=== PATIENT | male | born 1990 | race Two or more races ===

== ENCOUNTER 2018-03-21 12:34 | Outpatient (CLI) | payer BC | END 2018-03-21 23:59 | disposition home or self-care (01) | LOC: MRI 12:34 | PROVIDERS: ATTEND Legal Medicine | DX: S83.511A Sprain of anterior cruciate ligament of right knee, initial encounter (principal); M22.41 Chondromalacia patellae, right knee; X58.XXXA Exposure to other specified factors, initial encounter; Y93.89 Activity, other specified; Y92.89 Other specified places as the place of occurrence of the external cause; Y99.8 Other external cause status | CPT/HCPCS: 73721-TC ==

== ENCOUNTER 2018-04-04 08:55 | Outpatient (CLI) | payer BC | END 2018-04-04 23:59 | disposition home or self-care (01) | LOC: MRI 08:55 | PROVIDERS: ATTEND Student in an Organized Health Care Education/Training Program | DX: S76.011A Strain of muscle, fascia and tendon of right hip, initial encounter (principal); X58.XXXA Exposure to other specified factors, initial encounter; Y93.89 Activity, other specified; Y92.89 Other specified places as the place of occurrence of the external cause; Y99.8 Other external cause status | CPT/HCPCS: 73721-TC ==

== ENCOUNTER 2018-04-23 12:12 | Outpatient (CLI) | payer BC ==
[2018-04-23 13:09] LABS: APPEARANCE,URINE CLEAR (CLEAR); BILIRUBIN,URINE NEGATIVE (NEGATIVE); BLOOD, URINE NEGATIVE Ery/uL (NEGATIVE); COLOR,URINE YELLOW (YELLOW); KETONES,URINE NEGATIVE (NEGATIVE); LEUKOCYTE ESTERASE ,URINE NEGATIVE (NEGATIVE); NITRITE, URINE NEGATIVE (NEGATIVE); PROTEIN,URINE NEGATIVE (NEGATIVE); UGLUCOSE NEGATIVE (NEGATIVE); UROBILINOGEN,URINE 0.2 EU/dL (0.2)
[2018-04-23 13:10] LABS: BASOPHILS # (AUTO) 0.1 /CMM (0.0-0.2); BASOPHILS % (AUTO) 1.1 % (0.0-2.0); EOSINOPHILS % (AUTO) 2.4 % (0.0-6.0); HEMATOCRIT 47 % (39-51); LYMPHOCYTES # (AUTO) 2.5 /CMM (0.8-4.8); MEAN CORPUSCULAR HGB CONC 34 g/dl (31.0-36.0); MEAN CORPUSCULAR VOLUME 90 fL (80-96); MONOCYTES # (AUTO) 0.5 /CMM (0.1-1.30); MONOCYTES % (AUTO) 7.9 % (2.0-12.0); NEUTROPHILS % (AUTO) 48.6 % (43.0-81.0); PLATELET COUNT (AUTO) 247 /CMM (150-450); WHITE BLOOD COUNT (AUTO) 6.1 K/uL (4.3-11.0)
[2018-04-23 13:30] LABS: ALBUMIN 4.1 g/dL (3.4-5.0); BILIRUBIN,TOTAL 0.3 mg/dL (0.2-1.0); CALCIUM, SERUM 8.9 mg/dL (8.5-10.1); CREATININE 0.9 mg/dL (0.6-1.3); POTASSIUM 3.8 mmol/L (3.5-5.1); TOTAL PROTEIN, SERUM 7.3 g/dL (6.4-8.2)
== END 2018-04-23 23:59 | disposition home or self-care (01) ==
LOC: LAB 12:12
PROVIDERS: ATTEND Student in an Organized Health Care Education/Training Program
DX: S83.511A Sprain of anterior cruciate ligament of right knee, initial encounter (principal); X58.XXXA Exposure to other specified factors, initial encounter; Y93.89 Activity, other specified; Y92.89 Other specified places as the place of occurrence of the external cause; Y99.8 Other external cause status
CPT/HCPCS: 36415; 80053-TC; 81000-TC; 85025-TC; 85610-TC; 85730-TC

== ENCOUNTER → 2018-04-25 | Day surgery (SDC) | payer BC ==
[~2018-04-25] MED LIST: ANESTHESIA TRAY IN PYXIS 1 EA TRAY MC ONE; BUPIVACAINE 0.5 % PF 150 MG/30 ML VIAL ONE; HYDROMORPHONE 1 MG/1 ML DISP.SYRIN IV PRN; HYDROMORPHONE 1 MG/1 ML DISP.SYRIN ONE; HYDROMORPHONE INJ 2 MG/ML DISP.SYRIN ONE; MIDAZOLAM HCL 2 MG/2ML VIAL ONE; oxyCODONE/APAP (5/325 MG) 1 UDTAB TABLET ONE; oxyCODONE/APAP (5/325 MG) 1 UDTAB TABLET PO PRN
== END | disposition home or self-care (01) ==
LOC: DS 05:46
PROVIDERS: ATTEND Student in an Organized Health Care Education/Training Program
DX: S83.511A Sprain of anterior cruciate ligament of right knee, initial encounter (principal); S83.271A Complex tear of lateral meniscus, current injury, right knee, initial encounter; X58.XXXA Exposure to other specified factors, initial encounter; Y93.89 Activity, other specified; Y92.89 Other specified places as the place of occurrence of the external cause; Y99.8 Other external cause status
CPT/HCPCS: 29881; 29888; C1713; 88304-TC; 88311-TC; A4217; A6402; J0690; J1100; J1170; J1885; J2250; J2405; J2704; J3490

== ENCOUNTER 2019-06-03 11:08 | Outpatient (CLI) | payer BC | END 2019-06-03 23:59 | disposition home or self-care (01) | LOC: MRI 11:08 | PROVIDERS: ATTEND Student in an Organized Health Care Education/Training Program | DX: M25.561 Pain in right knee (principal) | CPT/HCPCS: 73721-TC ==

== ENCOUNTER 2019-08-07 01:02 | Emergency (ER) | payer BC, OTHER ==
[~2019-08-07] VITALS: Ht 172.7 cm; Wt 81.2 kg
[2019-08-07 01:04] VITALS: BP 121/75
--- NOTE | 2019-08-08 02:07 | NUR ---
LAB CALLED REGARDING COVID NEGATIVE RESULT
== END 2019-08-07 01:49 | disposition home or self-care (01) ==
LOC: ER 01:04
DX: Z03.818 Encounter for observation for suspected exposure to other biological agents ruled out (principal)
CPT/HCPCS: 99283; U0003

== ENCOUNTER 2019-11-19 23:13 | Emergency (ER) | payer OTHER ==
[~2019-11-19] VITALS: Ht 172.7 cm; Wt 81.2 kg
[2019-11-19 23:18] VITALS: BP 119/68
--- NOTE | 2019-11-19 23:47 | NUR ---
covid swab sent to lab
== END 2019-11-19 23:47 | disposition home or self-care (01) ==
LOC: ER 23:16
DX: Z20.828 Contact with and (suspected) exposure to other viral communicable diseases (principal)
CPT/HCPCS: 99283; C9803; U0003

== ENCOUNTER 2019-11-24 03:40 | Emergency (ER) | payer OTHER ==
[~2019-11-24] VITALS: Ht 172.7 cm; Wt 81.2 kg
[2019-11-24 03:42] VITALS: BP 118/79
== END 2019-11-24 04:11 | disposition home or self-care (01) ==
LOC: ER 03:42
DX: Z20.828 Contact with and (suspected) exposure to other viral communicable diseases (principal)
CPT/HCPCS: 99283; C9803; U0003

== ENCOUNTER 2019-12-04 01:54 | Emergency (ER) | payer OTHER ==
[~2019-12-04] VITALS: Ht 172.7 cm; Wt 74.8 kg
[2019-12-04 01:57] VITALS: BP 132/62
== END 2019-12-04 02:09 | disposition home or self-care (01) ==
LOC: ER 01:56
DX: Z20.828 Contact with and (suspected) exposure to other viral communicable diseases (principal)
CPT/HCPCS: 99283; C9803; U0003

== ENCOUNTER 2019-12-12 01:30 | Emergency (ER) | payer OTHER ==
[~2019-12-12] VITALS: Ht 172.7 cm; Wt 77.1 kg
[2019-12-12 01:31] VITALS: BP 132/62
--- NOTE | 2019-12-12 01:50 | NUR ---
UNABLE TO DEPART PT DUE TO MEDITECH ERROR APPLICATION.
== END 2019-12-12 01:50 | disposition home or self-care (01) ==
LOC: ER 01:30
DX: Z20.828 Contact with and (suspected) exposure to other viral communicable diseases (principal)
CPT/HCPCS: 99283; C9803; U0003

== ENCOUNTER 2019-12-25 01:55 | Emergency (ER) | payer OTHER ==
[~2019-12-25] VITALS: Ht 172.7 cm; Wt 77.1 kg
[2019-12-25 01:56] VITALS: BP 132/64
== END 2019-12-25 02:05 | disposition home or self-care (01) ==
LOC: ER 01:56
DX: Z20.828 Contact with and (suspected) exposure to other viral communicable diseases (principal)
CPT/HCPCS: 99283; C9803; U0003

== ENCOUNTER 2020-01-07 00:02 | Emergency (ER) | payer OTHER ==
[~2020-01-07] VITALS: Ht 172.7 cm; Wt 77.1 kg
[2020-01-07 00:05] VITALS: BP 132/64
== END 2020-01-07 00:22 | disposition home or self-care (01) ==
LOC: ER 00:03
DX: Z20.828 Contact with and (suspected) exposure to other viral communicable diseases (principal)
CPT/HCPCS: 99283; C9803; U0003

== ENCOUNTER 2020-01-18 23:01 | Emergency (ER) | payer BC, OTHER ==
[~2020-01-18] VITALS: Ht 172.7 cm; Wt 77.1 kg
[2020-01-18 23:05] VITALS: BP 128/86
== END 2020-01-18 23:42 | disposition home or self-care (01) ==
LOC: ER 23:04
DX: Z20.828 Contact with and (suspected) exposure to other viral communicable diseases (principal)
CPT/HCPCS: 99283; C9803; U0003

== ENCOUNTER 2020-01-22 04:16 | Emergency (ER) | payer OTHER ==
[~2020-01-22] VITALS: Ht 172.7 cm; Wt 77.1 kg
[2020-01-22 04:19] VITALS: BP 132/61
== END 2020-01-22 04:40 | disposition home or self-care (01) ==
LOC: ER 04:19
DX: Z20.828 Contact with and (suspected) exposure to other viral communicable diseases (principal)
CPT/HCPCS: 99283; C9803; U0003

== ENCOUNTER 2020-02-01 02:14 | Emergency (ER) | payer OTHER ==
[~2020-02-01] VITALS: Ht 172.7 cm; Wt 77.1 kg
[2020-02-01 02:16] VITALS: BP 124/65
== END 2020-02-01 03:22 | disposition home or self-care (01) ==
LOC: ER 02:16
DX: Z20.828 Contact with and (suspected) exposure to other viral communicable diseases (principal)
CPT/HCPCS: 99283; C9803; U0003

== ENCOUNTER 2020-02-04 06:45 | Outpatient (CLI) | payer BC | END 2020-02-04 23:59 | disposition home or self-care (01) | LOC: LAB 06:45 | PROVIDERS: ATTEND Student in an Organized Health Care Education/Training Program | DX: Z01.812 Encounter for preprocedural laboratory examination (principal); Z20.828 Contact with and (suspected) exposure to other viral communicable diseases | CPT/HCPCS: 87426; C9803; U0003 ==

== ENCOUNTER 2020-02-07 11:26 | Day surgery (SDC) | payer BC ==
[~2020-02-07 11:26] MED LIST changes: +EPINEPHRINE (1:1000) 1 MG/ML AMPUL ONE; -HYDROMORPHONE 1 MG/1 ML DISP.SYRIN IV PRN; -HYDROMORPHONE 1 MG/1 ML DISP.SYRIN ONE; -HYDROMORPHONE INJ 2 MG/ML DISP.SYRIN ONE; +LIDOCAINE 1% INJ 50 ML MDV IJ ONE; -MIDAZOLAM HCL 2 MG/2ML VIAL ONE; +methylPREDNISolone ACETATE 80 MG/ML VIAL ONE; -oxyCODONE/APAP (5/325 MG) 1 UDTAB TABLET ONE; -oxyCODONE/APAP (5/325 MG) 1 UDTAB TABLET PO PRN
[2020-02-07] MEDS ORDERED: MIDAZOLAM HCL 2 MG/2ML VIAL ONE (12:19)
[2020-02-07] MEDS ORDERED: FENTANYL PF 250MCG/5ML AMPUL ONE (12:19)
[2020-02-07] MEDS ORDERED: MORPHINE SULFATE/PF 10 MG/10ML (1MG/ML) AMPUL ONE (12:47)
[2020-02-07] MEDS ORDERED: BUPIVACAINE 0.5 % PF 150 MG/30 ML VIAL ONE (12:54)
[2020-02-07 13:16] LABS: BASOPHILS # (AUTO) 0.1 /CMM (0.0-0.2); BASOPHILS % (AUTO) 1.9 % (0.0-2.0); EOSINOPHILS % (AUTO) 1.2 % (0.0-6.0); HEMATOCRIT 47 % (39-51); HEMOGLOBIN 15.7 g/dL (13.5-17.5); LYMPHOCYTES # (AUTO) 2.1 /CMM (0.8-4.8); LYMPHOCYTES % (AUTO) 32.2 % (20.0-44.0); MEAN CORPUSCULAR HGB CONC 34 g/dl (31.0-36.0); MEAN CORPUSCULAR VOLUME 92 fL (80-96); MONOCYTES # (AUTO) 0.5 /CMM (0.1-1.30); NEUTROPHILS # (AUTO) 3.8 /CMM (1.8-8.9); NEUTROPHILS % (AUTO) 57.7 % (43.0-81.0); PLATELET COUNT (AUTO) 233 /CMM (150-450); RED BLOOD CELL COUNT(AUTO) 5.12 MIL/uL (4.5-6.0); WHITE BLOOD COUNT (AUTO) 6.6 K/uL (4.3-11.0)
[2020-02-07 13:30] LABS: BILIRUBIN,URINE NEGATIVE (NEGATIVE); BLOOD, URINE NEGATIVE Ery/uL (NEGATIVE); COLOR,URINE YELLOW (YELLOW); LEUKOCYTE ESTERASE ,URINE NEGATIVE (NEGATIVE); NITRITE, URINE NEGATIVE (NEGATIVE); PROTEIN,URINE NEGATIVE (NEGATIVE); UGLUCOSE NEGATIVE (NEGATIVE); UROBILINOGEN,URINE 0.2 EU/dL (0.2)
[2020-02-07 14:05] LABS: CALCIUM, SERUM 9.1 mg/dL (8.5-10.1); CREATININE 0.9 mg/dL (0.6-1.3); POTASSIUM 3.8 mmol/L (3.5-5.1)
== END 2020-02-07 14:50 | disposition home or self-care (01) ==
LOC: DS 11:26
PROVIDERS: ATTEND Student in an Organized Health Care Education/Training Program
DX: M25.861 Other specified joint disorders, right knee (principal); M65.861 Other synovitis and tenosynovitis, right lower leg
CPT/HCPCS: 29875; 36415; 80048; 81003; 85025; 85610; 85730; 86850; A4217; A6253; J0171; J0690; J1885; J2250; J2274; J2405; J2704; J3010; J3490 ×2; J1040

== ENCOUNTER 2020-02-25 10:03 | Outpatient (CLI) | payer BC | END 2020-02-25 23:59 | disposition home or self-care (01) | LOC: MRI 10:03 | PROVIDERS: ATTEND Legal Medicine | DX: M19.011 Primary osteoarthritis, right shoulder (principal); M75.91 Shoulder lesion, unspecified, right shoulder | CPT/HCPCS: 73221-TC ==

== ENCOUNTER 2020-04-21 02:06 | Emergency (ER) | payer BC, OTHER ==
[~2020-04-21] VITALS: Ht 172.7 cm; Wt 77.1 kg
[2020-04-21 02:07] VITALS: BP 135/82
== END 2020-04-21 03:06 | disposition home or self-care (01) ==
LOC: ER 02:08
DX: Z20.822 Contact with and (suspected) exposure to COVID-19 (principal)
CPT/HCPCS: 99283; C9803; U0003

== ENCOUNTER 2020-04-25 02:03 | Emergency (ER) | payer OTHER ==
[~2020-04-25] VITALS: Ht 172.7 cm; Wt 77.1 kg
[2020-04-25 02:17] VITALS: BP 127/61
== END 2020-04-25 03:06 | disposition home or self-care (01) ==
LOC: ER 02:03
DX: Z20.822 Contact with and (suspected) exposure to COVID-19 (principal)
CPT/HCPCS: 99283; C9803; U0003

== ENCOUNTER 2020-07-04 23:29 | Emergency (ER) | payer OTHER ==
[~2020-07-04] VITALS: Ht 172.7 cm; Wt 77.1 kg
[2020-07-04 23:29] VITALS: BP 123/85
== END 2020-07-05 00:27 | disposition home or self-care (01) ==
LOC: ER 23:31
DX: Z20.822 Contact with and (suspected) exposure to COVID-19 (principal)
CPT/HCPCS: 99283; C9803; U0003

== ENCOUNTER 2020-07-09 06:10 | Emergency (ER) | payer OTHER ==
[~2020-07-09] VITALS: Ht 170.2 cm; Wt 77.1 kg
[2020-07-09 06:11] VITALS: BP 136/88
== END 2020-07-09 06:56 | disposition home or self-care (01) ==
LOC: ER 06:10
DX: Z20.822 Contact with and (suspected) exposure to COVID-19 (principal)
CPT/HCPCS: 99283; C9803; U0003

== ENCOUNTER 2020-07-21 01:38 | Emergency (ER) | payer OTHER ==
[~2020-07-21] VITALS: Ht 170.2 cm; Wt 73.5 kg
[2020-07-21 01:48] VITALS: BP 122/76
== END 2020-07-21 01:57 | disposition home or self-care (01) ==
LOC: ER 01:41
DX: Z20.822 Contact with and (suspected) exposure to COVID-19 (principal); Z53.9 Procedure and treatment not carried out, unspecified reason

== ENCOUNTER 2020-07-22 06:05 | Emergency (ER) | payer OTHER ==
[~2020-07-22] VITALS: Ht 172.7 cm; Wt 73.5 kg
[2020-07-22 06:07] VITALS: BP 115/78
--- NOTE | 2020-07-22 06:11 | NUR ---
called lab for covid swab
--- NOTE | 2020-07-22 06:23 | NUR ---
luis collected. sent to lab
== END 2020-07-22 06:30 | disposition home or self-care (01) ==
LOC: ER 06:07
DX: Z20.822 Contact with and (suspected) exposure to COVID-19 (principal)
CPT/HCPCS: 99283; C9803; U0003

== ENCOUNTER 2020-08-02 00:14 | Emergency (ER) | payer OTHER ==
[~2020-08-02] VITALS: Ht 172.7 cm; Wt 73.5 kg
[2020-08-02 00:15] VITALS: BP 132/64
== END 2020-08-02 01:19 | disposition home or self-care (01) ==
LOC: ER 00:15
DX: Z20.822 Contact with and (suspected) exposure to COVID-19 (principal)
CPT/HCPCS: 99283; C9803; U0003

== ENCOUNTER 2020-08-06 03:23 | Emergency (ER) | payer OTHER ==
[~2020-08-06] VITALS: Ht 172.7 cm; Wt 73.5 kg
[2020-08-06 03:27] VITALS: BP 131/66
== END 2020-08-06 03:56 | disposition home or self-care (01) ==
LOC: ER 03:23
DX: Z20.822 Contact with and (suspected) exposure to COVID-19 (principal)
CPT/HCPCS: 99283; C9803; U0003

== ENCOUNTER → 2020-08-12 | Emergency (ER) | payer OTHER ==
[~2020-08-12] VITALS: Ht 172.7 cm; Wt 73.5 kg
[2020-08-12 00:48] VITALS: BP 142/72
== END | disposition home or self-care (01) ==
LOC: ER 00:41
DX: Z20.822 Contact with and (suspected) exposure to COVID-19 (principal)
CPT/HCPCS: 99283; C9803; U0003

== ENCOUNTER 2020-08-20 04:13 | Emergency (ER) | payer OTHER ==
[~2020-08-20] VITALS: Ht 172.7 cm; Wt 73.5 kg
[2020-08-20 04:14] VITALS: BP 137/76
== END 2020-08-20 05:01 | disposition home or self-care (01) ==
LOC: ER 04:16
DX: Z20.822 Contact with and (suspected) exposure to COVID-19 (principal)
CPT/HCPCS: 99283; C9803; U0003

== ENCOUNTER → 2020-08-29 | Emergency (ER) | payer OTHER ==
[~2020-08-29] VITALS: Ht 172.7 cm; Wt 73.5 kg
[2020-08-29 04:43] VITALS: BP 123/64
== END | disposition home or self-care (01) ==
LOC: ER 04:37
DX: Z20.822 Contact with and (suspected) exposure to COVID-19 (principal)
CPT/HCPCS: 99283; C9803; U0003

== ENCOUNTER 2020-09-03 05:39 | Emergency (ER) | payer OTHER ==
[~2020-09-03] VITALS: Ht 170.2 cm; Wt 72.6 kg
[2020-09-03 05:39] VITALS: BP 114/64
== END 2020-09-03 05:50 | disposition home or self-care (01) ==
LOC: ER 05:40
DX: Z20.822 Contact with and (suspected) exposure to COVID-19 (principal)
CPT/HCPCS: 99283; C9803; U0003

== ENCOUNTER 2020-09-12 00:20 | Emergency (ER) | payer OTHER ==
[~2020-09-12] VITALS: Ht 170.2 cm; Wt 72.6 kg
[2020-09-12 00:20] VITALS: BP 128/66
== END 2020-09-12 00:58 | disposition home or self-care (01) ==
LOC: ER 00:22
DX: Z20.822 Contact with and (suspected) exposure to COVID-19 (principal)
CPT/HCPCS: 99283; C9803; U0003

== ENCOUNTER 2020-09-19 07:34 | Emergency (ER) | payer OTHER ==
[~2020-09-19] VITALS: Ht 170.2 cm; Wt 72.6 kg
[2020-09-19 07:40] VITALS: BP 118/68
--- NOTE | 2020-09-19 07:57 | NUR ---
Patient discharged to home in stable condition. Written and verbal after care instructions given. Patient verbalizes understanding of instruction.
== END 2020-09-19 08:11 | disposition home or self-care (01) ==
LOC: ER 07:35
DX: Z20.822 Contact with and (suspected) exposure to COVID-19 (principal)
CPT/HCPCS: 99283; C9803; U0003

== ENCOUNTER 2020-09-23 04:03 | Emergency (ER) | payer OTHER ==
[~2020-09-23] VITALS: Ht 172.7 cm; Wt 74.8 kg
[2020-09-23 04:06] VITALS: BP 118/62
== END 2020-09-23 04:24 | disposition home or self-care (01) ==
LOC: ER 04:04
DX: Z20.822 Contact with and (suspected) exposure to COVID-19 (principal)
CPT/HCPCS: 99283; C9803; U0003

== ENCOUNTER 2020-10-03 22:51 | Emergency (ER) | payer OTHER ==
[~2020-10-03] VITALS: Ht 172.7 cm; Wt 74.8 kg
[2020-10-03 22:54] VITALS: BP 132/64
--- NOTE | 2020-10-03 23:02 | NUR ---
Patient discharged to home in stable condition. Written and verbal after care instructions given. Patient verbalizes understanding of instruction.
== END 2020-10-03 23:09 | disposition home or self-care (01) ==
LOC: ER 22:51
DX: Z20.822 Contact with and (suspected) exposure to COVID-19 (principal)
CPT/HCPCS: 99283; C9803; U0003

== ENCOUNTER 2020-10-09 14:36 | Outpatient (CLI) | payer BC | END 2020-10-09 23:59 | disposition home or self-care (01) | LOC: MRI 14:36 | PROVIDERS: ATTEND Legal Medicine | DX: M50.31 Other cervical disc degeneration, high cervical region (principal); M50.21 Other cervical disc displacement, high cervical region; M75.91 Shoulder lesion, unspecified, right shoulder | CPT/HCPCS: 72141-TC; 73221-TC ==

== ENCOUNTER 2020-10-09 16:15 | Emergency (ER) | payer OTHER, BC ==
[~2020-10-09] VITALS: Ht 172.7 cm; Wt 74.8 kg
[2020-10-09 16:22] VITALS: BP 122/77
== END 2020-10-09 16:55 | disposition home or self-care (01) ==
LOC: ER 16:19
DX: Z20.822 Contact with and (suspected) exposure to COVID-19 (principal)
CPT/HCPCS: 99283; C9803; U0003